=== PATIENT | male | born 1960 | race Caucasian/White ===

== ENCOUNTER 2017-12-12 16:06 | Emergency (ER) | payer OTHER, BC | END 2017-12-12 19:01 | disposition home or self-care (01) | LOC: M ED 16:06 | DX: S46.811A Strain of other muscles, fascia and tendons at shoulder and upper arm level, right arm, initial encounter (principal); X50.0XXA Overexertion from strenuous movement or load, initial encounter; Y92.89 Other specified places as the place of occurrence of the external cause; I10 Essential (primary) hypertension; Z79.899 Other long term (current) drug therapy | CPT/HCPCS: 73030 ==

== ENCOUNTER → 2018-10-08 | Outpatient (CLI) | payer BC ==
[~2018-10-08] MED LIST: ADVI200C5 PO; COUM2.5T17 PO; IBUP-1022 PO; LISI-542 PO; LISI10TA4 PO; OMEP20CA3 PO; PERC5TAB12 PO; SIMV20TA2 PO; SIMV40TA2 PO
--- NOTE | 2018-10-08 13:49 | REP ---
MAXILLOFACIAL CT WITHOUT CONTRAST: HISTORY: Sinus congestion. Moderate mucosal thickening is present in the right maxillary sinus. Minimal mucosal thickening is present in the right ethmoid and left maxillary sinuses. The remaining sinuses are clear. Mucosal thickening involves the right osteomeatal unit. The left osteomeatal unit is patent. The middle and inferior nasal turbinates are partially paradoxical. There is mild deviation of the nasal septum to the left. A spur is present arising from the left side of the nasal septum. The cribriform plate, medial borges of the orbits and optic canals are intact. The carotid canals form a segment of the posterolateral borges of the sphenoid sinus. IMPRESSION: Sinus mucosal thickening as described above. Electronically Signed by Paul Isaac MD 10/08/2018 02:18 P
== END ==
LOC: M RAD 12:49
PROVIDERS: ATTEND Nurse Practitioner Adult Health
DX: J34.2 Deviated nasal septum (principal); J32.0 Chronic maxillary sinusitis

== ENCOUNTER 2019-03-22 07:31 | Emergency (ER) | payer BC ==
[~2019-03-22] VITALS: Ht 182.9 cm; Wt 102.1 kg
[~2019-03-22 07:31] MED LIST changes: -OMEP20CA3 PO; +OMEP20CA4 PO
[2019-03-22] MEDS ORDERED: TETRACAINE 0.5% OPHTH SOLN 4ML OD ONE (07:45)
[2019-03-22] MEDS ORDERED: FLUORESCEIN OPHTH 1 MG STRIP OD ONE (07:45)
[2019-03-22] MEDS ORDERED: ERYT1OIN26 OD (08:08)
[2019-03-22] MEDS ORDERED: ERYTHROMYCIN OPHTH OINT OD ONE (08:15)
[2019-03-22] MEDS ORDERED: ADACEL/BOOSTRIX VACCINE (DIPHTH/PERTUSS/ACELL/TETANUS)0.5ML SYR (90715) IM ONE (08:45)
[2019-03-22 08:48] VITALS: BP 140/93
== END 2019-03-22 09:10 | disposition home or self-care (01) ==
LOC: M ED 07:31
DX: S05.01XA Injury of conjunctiva and corneal abrasion without foreign body, right eye, initial encounter (principal); T15.01XA Foreign body in cornea, right eye, initial encounter; X58.XXXA Exposure to other specified factors, initial encounter; Y92.099 Unspecified place in other non-institutional residence as the place of occurrence of the external cause; Y93.H3 Activity, building and construction; Y99.9 Unspecified external cause status; E78.00 Pure hypercholesterolemia, unspecified; I10 Essential (primary) hypertension; Z96.649 Presence of unspecified artificial hip joint

== ENCOUNTER → 2019-04-01 | Outpatient (REF) | payer BC ==
[~2019-04-01] MED LIST changes: +ERYT1OIN26 OD
[2019-04-01 10:45] LABS: HEMOGLOBIN 16.4 g/dl (13.5-17.5); MEAN CORPUSCULAR HEMOGLOBIN 30.1 pg (27.0-33.0); MEAN CORPUSCULAR HGB CONC 32.8 g/dl (32.0-36.5); MEAN CORPUSCULAR VOLUME 91.7 fl (80.0-96.0); PLATELET COUNT, AUTOMATED 310 10^3/uL (150-450); RED BLOOD COUNT 5.45 10^6/uL (4.30-6.10); WHITE BLOOD COUNT 5.3 10^3/uL (4.0-10.0)
[2019-04-01 11:01] LABS: ALBUMIN 3.7 GM/DL (3.2-5.2); ALT/SGPT 31 U/L (12-78); BILIRUBIN,TOTAL 0.4 MG/DL (0.2-1.0); BLOOD UREA NITROGEN 20 MG/DL (7-18); CALCIUM LEVEL 9.4 MG/DL (8.5-10.1); CARBON DIOXIDE LEVEL 32 MEQ/L (21-32); CHLORIDE LEVEL 106 MEQ/L (98-107); CHOLESTEROL LEVEL 277 MG/DL (<200); CREATININE FOR GFR 0.78 MG/DL (0.70-1.30); GLOMERULAR FILTRATION RATE > 60.0 (>56); GLUCOSE, FASTING 86 MG/DL (70-100); HDL CHOLESTEROL 48 MG/DL (>40); LDL CHOLESTEROL 203 MG/DL (<100); NON-HDL-C 229 MG/DL; POTASSIUM SERUM 4.8 MEQ/L (3.5-5.1); SODIUM LEVEL 141 MEQ/L (136-145); TOTAL 25(OH) VITAMIN D 22.1 NG/ML (30.0-100.0); TOTAL PROTEIN 6.9 GM/DL (6.4-8.2); TRIGLYCERIDES LEVEL 131 MG/DL (<150); VITAMIN B12 LEVEL 491 PG/ML (247-911)
[2019-04-01 11:09] LABS: HEMOGLOBIN A1c 5.6 %
[2019-04-02 14:16] LABS: IgG P18 AB Present (.); IgG P23 AB Absent (.); IgG P28 AB Absent (.); IgG P30 AB Absent (.); IgG P39 AB Absent (.); IgG P41 AB Absent (.); IgG P45 AB Absent (.); IgG P66 AB Absent (.); IgG P93 AB Absent (.); IgM P23 AB Absent (.); IgM P39 AB Absent (.); IgM P41 AB Absent (.); LYME IgG WB INTERPRETATION Negative (.); LYME IgM WB INTERPRETATION Negative (.)
== END ==
LOC: M SFHCPLAZ 07:22
PROVIDERS: ATTEND Nurse Practitioner Adult Health
DX: Z00.00 Encounter for general adult medical examination without abnormal findings (principal); Z12.5 Encounter for screening for malignant neoplasm of prostate; R73.01 Impaired fasting glucose; R53.83 Other fatigue
CPT/HCPCS: 36415; 80053; 80061; 82306; 82607; 83036; 84443; 85027; 86617; G0103

== ENCOUNTER → 2019-06-08 | Outpatient (REF) | payer BC ==
[~2019-06-08] MED LIST changes: +OMEP1CAP73 PO; -OMEP20CA4 PO; -SIMV20TA2 PO; +SIMV20TA22 PO; -SIMV40TA2 PO; +SIMV40TA20 PO
== END ==
LOC: M LAB REF 14:30
PROVIDERS: ATTEND Dermatology
DX: L57.0 Actinic keratosis (principal)

== ENCOUNTER → 2020-10-27 | Outpatient (CLI) | payer BC ==
[~2020-10-27] MED LIST changes: -ERYT1OIN26 OD; +ERYT5OIN25 OD; -LISI-542 PO; +LISI-898 PO; +LISI10TA22 PO; -LISI10TA4 PO
--- NOTE | 2020-10-28 05:58 | REP ---
INDICATION: PAIN. COMPARISON: None. TECHNIQUE: AP view of the pelvis with neutral and frog-lateral views of the right and left hip. FINDINGS: Visualized portions of the pelvis demonstrates no acute fracture or dislocation. Right hip demonstrates advanced osteoarthritic degenerative changes including subchondral/periarticular sclerosis, joint space obliteration, osteophytosis. No acute fracture or dislocation. Left hip demonstrates prior replacement in satisfactory appearance. Small amounts of heterotopic calcification/bone formation in the adjacent soft tissue noted. IMPRESSION: Advanced degenerative changes to the right hip. Left hip replacement appears intact and stable. <Electronically signed by Sebastian Johnson > 10/28/20 1704
== END ==
LOC: M SOG 10:06
PROVIDERS: ATTEND Orthopaedic Surgery Adult Reconstructive Orthopaedic Surgery
DX: M16.11 Unilateral primary osteoarthritis, right hip (principal); Z96.642 Presence of left artificial hip joint

== ENCOUNTER 2020-11-29 07:18 | Outpatient (RCR) | payer BC ==
[~2020-11-29 07:18] MED LIST changes: -LISI-898 PO; +LISI5TAB11 PO
[2020-12-01] MEDS ORDERED: IBUP200T46 PO (08:14)
[2021-01-04] MEDS ORDERED: ATOR1TAB21 (07:06)
== END 2020-12-10 ==
LOC: M PT 07:18
PROVIDERS: ATTEND Orthopaedic Surgery Adult Reconstructive Orthopaedic Surgery
DX: M16.31 Unilateral osteoarthritis resulting from hip dysplasia, right hip (principal)

== ENCOUNTER → 2020-12-12 | Outpatient (CLI) | payer BC ==
[~2020-12-12] MED LIST changes: +ATOR1TAB21; +IBUP200T46 PO; +NAPR-849 PO; +OXYC-517 PO
== END ==
LOC: M RAD 08:58
PROVIDERS: ATTEND Orthopaedic Surgery Adult Reconstructive Orthopaedic Surgery
DX: M16.31 Unilateral osteoarthritis resulting from hip dysplasia, right hip (principal)

== ENCOUNTER → 2020-12-13 | Outpatient (REF) | payer BC | LOC: M SFHCPLAZ 08:44 | PROVIDERS: ATTEND Internal Medicine | DX: K21.9 Gastro-esophageal reflux disease without esophagitis (principal); I10 Essential (primary) hypertension; E78.00 Pure hypercholesterolemia, unspecified; Z11.59 Encounter for screening for other viral diseases; Z12.5 Encounter for screening for malignant neoplasm of prostate ==

== ENCOUNTER → 2020-12-13 | Outpatient (CLI) | payer BC ==
[2020-12-13 12:09] LABS: BASO # 0.1 10^3/uL (0.0-0.2); BASO % 1.3 % (0.0-1.0); EOS # 0.3 10^3/uL (0.0-0.5); EOS % 5.6 % (0.0-3.0); HEMATOCRIT 52.2 % (42.0-52.0); LYMPH # 1.7 10^3/uL (1.5-5.0); LYMPH % 31.7 % (24.0-44.0); MEAN CORPUSCULAR HEMOGLOBIN 29.8 pg (27.0-33.0); MEAN CORPUSCULAR HGB CONC 32.6 g/dl (32.0-36.5); MEAN CORPUSCULAR VOLUME 91.4 fl (80.0-96.0); MONO # 0.6 10^3/uL (0.0-0.8); MONO % 10.6 % (2.0-8.0); NEUTROPHILS # 2.7 10^3/uL (1.5-8.5); NEUTROPHILS % 50.4 % (36.0-66.0); PLATELET COUNT, AUTOMATED 341 10^3/uL (150-450); RED BLOOD COUNT 5.71 10^6/uL (4.30-6.10); WHITE BLOOD COUNT 5.4 10^3/uL (4.0-10.0)
[2020-12-13 12:43] LABS: ALT/SGPT 30 U/L (12-78); BILIRUBIN,TOTAL 0.4 MG/DL (0.2-1.0); BLOOD UREA NITROGEN 21 MG/DL (7-18); CALCIUM LEVEL 9.9 MG/DL (8.8-10.2); CARBON DIOXIDE LEVEL 31 MEQ/L (21-32); CHLORIDE LEVEL 106 MEQ/L (98-107); CHOLESTEROL LEVEL 296 MG/DL (<200); CHOLESTEROL RISK RATIO 5.692 (<5); CREATININE FOR GFR 0.85 MG/DL (0.70-1.30); GLOMERULAR FILTRATION RATE > 60.0 (>49); GLUCOSE, FASTING 86 MG/DL (70-100); HDL CHOLESTEROL 52 MG/DL (>40); LDL CHOLESTEROL 213 MG/DL (<100); NON-HDL-C 244 MG/DL; POTASSIUM SERUM 4.9 MEQ/L (3.5-5.1); SODIUM LEVEL 142 MEQ/L (136-145); TOTAL PROTEIN 7.3 GM/DL (6.4-8.2); TRIGLYCERIDES LEVEL 155 MG/DL (<150)
[2020-12-13 13:30] LABS: HEPATITIS C VIRUS ABY INDEX 0.1 INDEX (<0.8)
== END ==
LOC: M PLALAB 08:51
PROVIDERS: ATTEND Internal Medicine
DX: Z12.5 Encounter for screening for malignant neoplasm of prostate (principal)
CPT/HCPCS: 36415; 80053; 80061; 85025; 86803; G0103

== ENCOUNTER → 2020-12-22 | Outpatient (CLI) | payer BC ==
[~2020-12-22] MED LIST changes: -ATOR1TAB21; +IBUP200T45 PO; -IBUP200T46 PO; +LISI-898 PO; -LISI5TAB11 PO; -NAPR-849 PO; -OXYC-517 PO
== END ==
LOC: M LABSMTC 09:42
PROVIDERS: ATTEND Anesthesiology
DX: Z20.828 Contact with and (suspected) exposure to other viral communicable diseases (principal); Z11.59 Encounter for screening for other viral diseases

== ENCOUNTER → 2021-01-12 | Outpatient (CLI) | payer BC ==
[~2021-01-12] MED LIST changes: +ATOR1TAB21; +NAPR-849 PO; +OXYC-517 PO
== END ==
LOC: M LABSMTC 09:40
PROVIDERS: ATTEND Anesthesiology
DX: Z01.812 Encounter for preprocedural laboratory examination (principal)

== ENCOUNTER 2021-01-17 08:54 | Inpatient (IN) | payer BC ==
[~2021-01-17] VITALS: Ht 182.9 cm; Wt 99.1 kg
[~2021-01-17 08:54] MED LIST changes: +ACETAMINOPHEN 500 MG TAB PO ONE; +LIDOCAINE 2% 100MG/5ML SDV (FOR ANES.) As Ordered ONE; +LR 1,000 ML IV ONE; +MIDAZOLAM INJ 2MG/2ML VIAL (J2250 PER 1MG) As Ordered ONE; -NAPR-849 PO; +NAPROXEN 250 MG TAB PO ONE; +NS 1,000 ML IV ONE; -OXYC-517 PO; +PREGABALIN 25 MG CAP (LYRICA) PO ONE; +ROPIVA 125MG/EPINEPH 0.25MG/CLONID 40MCG/KETOR 15MG IN NS 50ML SYRINGE PA ONE; +TRANEXAMIC ACID INJection 1,000 MG in NS 50 ML IV ONE; +dexameTHASONE 4 MG/ML 1ML VIAL (J1100 PER 1MG) IV ONE; +fentaNYL 100 MCG/2 ML INJECTION (J3010) As Ordered ONE; +propofoL 200 MG/20 ML VIAL As Ordered ONE
[2021-01-17] MEDS ORDERED: TRANEXAMIC ACID 100 MG/ML 10ML VIAL As Ordered ONE ×2 (10:55→10:56)
[2021-01-17] MEDS ORDERED: ceFAZolin 2 GM/D5W 50 ML IV BAG (J0690 PER 500MG) As Ordered ONE (11:39)
[2021-01-17] MEDS ORDERED: GLYCOPYRROLATE INJ 0.2 MG/ML 2 ML VIAL As Ordered ONE (11:58)
[2021-01-17] MEDS ORDERED: propofoL 200 MG/20 ML VIAL As Ordered ONE ×3 (12:38→13:51)
[2021-01-17] MEDS ORDERED: ROCURONIUM BROMIDE 50 MG/5 ML VIAL As Ordered ONE (13:51)
[2021-01-17] MEDS ORDERED: SUGAMMADEX SODIUM 500 MG/5 ML VIAL (BRIDION) As Ordered ONE (13:52)
[2021-01-17] MEDS ORDERED: ONDANSETRON 4MG/2ML VIAL As Ordered ONE (14:11)
[2021-01-17] MEDS ORDERED: ACETAMINOPHEN 1000MG 100ML IV BTL (OFIRMEV) (J0131 PER 10MG) As Ordered ONE (14:20)
[2021-01-17] MEDS ORDERED: MORPHINE 2 MG/ML 1ML VIAL (J2270) IV PRN (15:05)
[2021-01-17] MEDS ORDERED: fentaNYL 100 MCG/2 ML INJECTION (J3010) IV PRN (15:05)
[2021-01-17] MEDS ORDERED: ACETAMINOPHEN TAB 650MG DOSE (2X325MG) PO PRN (15:05)
[2021-01-17] MEDS ORDERED: oxyCODONE 5MG TAB PO PRN (15:05)
[2021-01-17] MEDS ORDERED: PERCOCET 5MG/325MG TAB PO PRN ×2 (15:05)
[2021-01-17] MEDS ORDERED: METOCLOPRAMIDE INJ 10MG/2ML VIAL (J2765 PER 1) IV PRN (15:05)
[2021-01-17] MEDS ORDERED: ONDANSETRON 4MG/2ML VIAL IV PRN ×3 (15:05→15:40)
[2021-01-17] MEDS ORDERED: LR 1,000 ML IV SCH ×2 (15:05→16:00)
--- NOTE | 2021-01-17 15:09 | REP ---
INDICATION: "lowset AP pelvis" s/p arthroplasty R hip. COMPARISON: 10/27/2020 TECHNIQUE: A single AP view of the pelvis was performed. FINDINGS: A since the last examination a total right hip prosthesis was placed. The femoral and acetabular components appear well seated and well approximated. The alignment is near anatomical. There is no evidence of an acute fracture, dislocation, or subluxation. IMPRESSION: Status post right hip prosthesis as described above. <Electronically signed by Sam Anderson > 01/17/21 0326
--- NOTE | 2021-01-17 15:32 | HPEPDOC ---
[facility] Medical History & Physical Date of Admission Jan 17, 2021 Date of Service: Jan 17, 2021 Primary Care Physician: Pancho Souza Attending Physician: CATRINA MCINTYRE DO History and Physical CHIEF COMPLAINT: Right hip osteoarthritis HISTORY OF PRESENT ILLNESS: Patient is a 60-year-old male who presents to the hospital today for a total right hip arthroplasty performed by Dr. De La Rosa today. Patient will be admitted overnight. Patient states he is in his usual state of health before coming to surgery. Patient states he feels good after the surgery and has a very minimal amount of pain. Patient says the spinal had it wear off and he is having trouble feeling his legs but is otherwise feeling well. Patient denied any complaints at this time. PAST MEDICAL HISTORY: 1. Hypertension. 2. History of irregular heartbeat. 3. Arthritis. 4. Back pain 5. Diverticulosis PAST SURGICAL HISTORY: 1. [place] tooth extraction. 2. Prostate biopsy, -2009. 3. Colonoscopy with hyperplastic polyp in 2014, 5-year follow-up recommended 4. Total left hip arthroplasty 01/27/2016 SOCIAL HISTORY: Patient is currently and lives with his . Patient denies smoking will occasionally drink alcohol and denies illicit drug use. Patient works as a salesman for [employer] FAMILY HISTORY: Patient did not know his father and his mother was adopted. Mother from a heart attack ALLERGIES: Please see below. REVIEW OF SYSTEMS: General: Patient denies fevers HEENT: Patient denies headaches Cardiovascular: Patient denies chest pain Respiratory: Patient denies shortness of breath, cough GI: Patient denies abdominal pain, nausea, vomiting, diarrhea : Patient denies increased frequency or pain with urination Extremities: Patient reports some pain in his right hip with the surgery was performed Neurological: Patient denies numbness or tingling in legs Skin: Patient denies any new rashes or lesions. Hematologic: Patient denies any easy bruising. Lymphatic: Patient denies any lumps lumps or bumps in neck, axilla, or groin HOME MEDICATIONS: Please see below. PHYSICAL EXAMINATION: VITAL SIGNS: Temperature 98.5, pulse 85, respiratory rate 18, blood pressure 118/71, pulse oximetry 97% on room air. General: Alert and oriented male patient who was laying in bed in the recovery room when I walked in the room. Patient not appear to be in acute distress. HEENT: Normocephalic, atraumatic, moist mucous membranes. Neck: No lymphadenopathy or thyromegaly Cardiac: Regular rate and rhythm, no murmurs, normal S1, normal S2 Pulm: Clear to auscultation bilaterally. No wheezes, rhonchi, rales Abd: Nondistended, nontender to palpation, normal bowel sounds Ext: No edema bilateral lower extremities Neuro: Patient reported that he cannot feel me lightly touching his legs due to the spinal anesthesia. Patient could feel his upper extremities. Patient was able to move his upper extremities. Skin: Skin of the head, neck, upper and lower extremities was examined did not show any evidence of rash or wounds. Right hip incision was covered with bandage. LABORATORY DATA: See below. IMAGING: X-ray of the pelvis performed on 01/17/2021 was reported to show status post right hip prosthesis. MICROBIOLOGY: Please see below. ASSESSMENT: 60-year-old male who presents to the hospital for right hip arthroplasty performed by Dr. De La Rosa. . PLAN: 1. Right hip osteoarthritis. Patient had right hip arthroplasty performed by Dr. De La Rosa today, 01/17/2021. Patient did well during the surgery and will work with physical therapy tomorrow. Patient will have pain control with Percocet. Once patient is doing well in physical therapy, the patient be discharged home for next 24 to 48 hours. 2. Hyperlipidemia. Continue patient's home medications. 3. History of hypertension. Patient does not appear to be on any antihypertensive medications. We will monitor the patient's blood pressure and treat if necessary. 4. DVT prophylaxis: Teds and sequentials 5. CODE STATUS: Full code Disposition: Patient be found to the medical surgical floor and work physical therapy and will be discharged once he passes physical therapy. Vital Signs Vital Signs Date Time Temp Pulse Resp B/P (MAP) Pulse Ox O2 Delivery O2 Flow Rate FiO2 01/17/21 15:15 85 18 118/71 (87) 97 Room Air 01/17/21 14:47 98.5 Home Medications Scheduled PRN Ibuprofen (Ibu-200) 200 Mg Tablet, 600 MG PO Q4-6HP PRN for fever Miscellaneous Medications Atorvastatin Calcium (Atorvastatin Calcium) 20 Mg Tablet Allergies Coded Allergies: No Known Allergies (Unverified , 01/04/21) A-FIB/CHADSVASC A-FIB History Current/History of A-Fib/PAF?: No CATRINA MCINTYRE DO Jan 17, 2021 15:32
[2021-01-17] MEDS ORDERED: SENNA 8.6 MG TAB (SENOKOT) PO PRN (15:45)
[2021-01-17 16:15] VITALS: BP 126/65
[2021-01-17 16:45] VITALS: BP 126/72
--- NOTE | 2021-01-17 17:01 | ROOPDOC ---
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 MANAGER DIALYSIS: Viday Reilly PA-C ANESTHESIA: Spinal with conversion to general anesthetic towards the end of the case ESTIMATED BLOOD LOSS: Approximately 300 mL. COMPLICATIONS: No known REMARKS: Patient was seen in the preoperative area and the right lower extremity was checked.. The consent was reviewed. Prior to surgical intervention the [facility] plan was reviewed and adjusted. FINDINGS: Right hip osteoarthritis with coxa magna and dysplasia SPECIMENS REMOVED: None PROCEDURE NOTE: Components: [place] Trident 2 titanium acetabular shell size 5 mm Accolade 2 size #6 femoral stem MDM liner 28 mm inner diameter Ceramic femoral head 28 mm PLUS 4 DESCRIPTION OF PROCEDURE: The patient was brought to the operating room and a surgical pause was carried out. The patient was then positioned for a spinal anesthetic which was carried out. The patient was then positioned in the left lateral decubitus position for the right total hip arthroplasty. Appropriate padding was carried out including an axillary roll. Patient was secured with the Stulberg positioning system. The patient and underwent a chlorhexidine wash of the right lower extremity followed by 2 times alcohol wash and then 1 hydrogen peroxide wash. 2 standard sterile chlorhexidine preps were carried out utilizing the ones. The patient was then prepped and draped in the standard fashion. A surgical pause was carried out and a surgical safety checklist was completed. The modified Leroy approach was utilized for the lateral skin incision. Skin and subcutaneous tissues were incised down to the fascia. The fascia was split. This was retracted to expose the abductors. The abductors and capsule were elevated using electrocautery in a single layer. Hohmann retractors were placed to help with visualization. The iliac crest array was placed using 3 pins for the Nicho system in the standard fashion, utilizing stab hole incisions. The checkpoint for the greater trochanter was then placed. The right lower extremity was then registered. The hip was dislocated. The labrum was removed with electrocautery and other soft tissues to help with exposure. Electrocautery was used for hemostasis throughout the procedure. The acetabular checkpoint was then placed. The pelvis and acetabular cup was then registered using the [employer] robot. The robot was then brought in for appropriate reaming as per the preoperative plan. A 52 mm cup was reamed. Of note, the patient had a fairly sclerotic cup and there was difficulty with reaming. Some of the reamings were placed in the fovea of the acetabulum for autologous bone grafting. Additional soft tissue was removed from the acetabulum using electrocautery. The Nicho robot was then used to impact the cup at the preplanned version and abduction angle. This was seated appropriately. Significant osteophyte at the inferior border of the cup had to be removed utilizing a rongeur and a curette in order to allow the the du al mobility liner to be placed and then impacted without difficulty. It was checked to ensure it was secured with a freer. The patient then had the leg placed in the bag with a femoral elevator and a Roxanna elevating the proximal femur. Electrocautery was used to free up soft tissue at the posterior lateral aspect of the femur. A rongeur and then a box osteotome were used to open up the femoral canal followed by the canal finder. Broaching then occurred up to a size 7. Both size 6 and 7 were trialed however the 6 appeared to be the most appropriate. At this time, it was noted that the patient spinal anesthetic was appearing to wear off and he was regaining muscular tone. A general anesthetic intubation was then carried out with the patient in the left lateral decubitus position. Th the size 6 was trialed with the standard head and neck and subsequently with the +4 and then found to have appropriate tensioning, leg length and offset as well as a good stable range of motion. This was trialed and the leg was taken through stable range of motion without any risk of dislocation being noted. The final components were assembled. The stem was inserted. The +4 was retrialed. The trunnion was cleansed with normal sterile saline and dried and then the dual mobility head was impacted. This was then reduced and taken through a full stable range of motion. Wound was irrigated and tranexamic acid was allowed to sit for 3 minutes. The wound also had Betadine soaking in it. The layered closure then occurred with #1 Vicryl closure deep followed by #1 Vicryl and strata fix for the abductors and then #1 Vicryl and strata fix for the fascia. The subcutaneous layer was closed with interrupted #1 Vicryl followed by running 2.0 Vicryl followed by three-point 0 Monocryl. Normal sterile saline and Betadine washes were carried out in between layers. The stab wounds for the iliac crest array were irrigated with normal sterile saline and painted with Betadine before closure with three-point 0 Monocryl. The wound was sealed with Steri-Strips followed by Telfa and Tegaderm for the iliac crest dressing and a Mepilex dressing for the Leroy incision. The patient was taken to the recovery room stable with no known complications The patient will be admitted to the hospitalist service. Anticipate discharge postop day 1 if there are no issues. Physical therapy to mobilize. Discharge Instructions Total Hip Arthroplasty 1. Pain: You may take oxycodone as prescribed for pain. Supplement with Naproxen and Tylenol as needed. Ice pack to operative hip as tolerated. 2. Wound care: Remove lateral head dressing on postop day 7. The iliac crest pin site dressing can be changed every 3 days with Telfa and Tegaderm. call [phone] with any questions or concerns. Hygiene: The patient may shower. No tub baths. Check dressing seal prior to bathing. 3. Activity: WBAT right lower extremity. Front wheeled walker versus crutches for ambulation. Fall precautions. Anterolateral hip precautions (NO figure of 4/crossing legs, combined external rotation/extension, combined internal rotation/abduction). 4. Driving: No driving until cleared by your surgeon. Do not drive if taking narcotic pain medications as these may make you drowsy. 5. DVT Prophylaxis: Continue taking aspirin 81 mg p.o. twice daily as prescribed for the prevention of blood clots. Ankle pumps every 1 hour while awake. JURGEN hose at all times for 1 month after surgery. May remove for hygiene and wound care. 6. Placement: Plan is to discharge patient to home with home health including nursing and physical therapy. 7. Surgeon Follow-up: The patient is scheduled to be seen in Dr. Monroy's office 2 weeks post op with xrays. 8. Primary care Follow-up: Please see your primary care provider in the next 2 to 5 weeks for general medical re-evaluation and medication review. 9. Labs: CBC without differential and BMP to be drawn on postop day 3 with results to PCP and please fax to [phone]. 10. Please contact [facility] if you have any questions or concerns at [phone]. AMANDA MONROY MD Jan 17, 2021 17:01
[2021-01-17 17:15] VITALS: BP 126/72
[2021-01-17] MEDS: ACETAMINOPHEN TAB 650MG DOSE (2X325MG) PO SCH ×2 (17:42→23:32)
[2021-01-17] MEDS ORDERED: ACETAMINOPHEN TAB 650MG DOSE (2X325MG) PO SCH (18:00)
[2021-01-17 18:15] VITALS: BP 126/74
[2021-01-17] MEDS: ceFAZolin SOD 2 GM in IV 1 EA IV SCH (20:11)
[2021-01-17] MEDS: ASPIRIN 81MG ENTERIC TABLET PO SCH (20:11)
[2021-01-17] MEDS: traMADol 50 MG TAB PO PRN (20:12)
[2021-01-17] MEDS: DOCUSATE SODIUM 100MG CAPSULE PO SCH (20:13)
[2021-01-17] MEDS: NAPROXEN 250 MG TAB PO SCH (20:13)
[2021-01-17] MEDS ORDERED: ASPIRIN 81 MG CHEW TABLET PO SCH (21:00)
[2021-01-17] MEDS: oxyCODONE 5MG TAB PO PRN (22:54)
[2021-01-18] VITALS: BP 118/81
[2021-01-18] MEDS: traMADol 50 MG TAB PO PRN ×2 (00:20→08:53)
[2021-01-18] MEDS: oxyCODONE 5MG TAB PO PRN ×3 (02:57→11:59)
[2021-01-18] MEDS: ceFAZolin SOD 2 GM in IV 1 EA IV SCH (03:00)
[2021-01-18] MEDS: ACETAMINOPHEN TAB 650MG DOSE (2X325MG) PO SCH ×2 (05:43→11:59)
[2021-01-18 06:00] VITALS: BP 122/79
[2021-01-18 06:11] LABS: HEMATOCRIT 37.3 % (42.0-52.0); HEMOGLOBIN 12.8 g/dl (13.5-17.5); MEAN CORPUSCULAR HEMOGLOBIN 30.5 pg (27.0-33.0); MEAN CORPUSCULAR HGB CONC 34.3 g/dl (32.0-36.5); PLATELET COUNT, AUTOMATED 271 10^3/uL (150-450); RED BLOOD COUNT 4.19 10^6/uL (4.30-6.10); WHITE BLOOD COUNT 14.9 10^3/uL (4.0-10.0)
[2021-01-18 06:38] LABS: BLOOD UREA NITROGEN 14 MG/DL (7-18); CARBON DIOXIDE LEVEL 25 MEQ/L (21-32); CHLORIDE LEVEL 108 MEQ/L (98-107); CREATININE FOR GFR 0.68 MG/DL (0.70-1.30); GLOMERULAR FILTRATION RATE > 60.0 (>49); GLUCOSE, FASTING 113 MG/DL (70-100); MAGNESIUM LEVEL 2.2 MG/DL (1.8-2.4); POTASSIUM SERUM 4.4 MEQ/L (3.5-5.1); SODIUM LEVEL 138 MEQ/L (136-145)
--- NOTE | 2021-01-18 07:49 | IPNPDOC ---
Text Note Date of Service The patient was seen on 01/18/21. NOTE Postop day 1 right total hip arthroplasty Patient reports that he had been doing quite well last night. He did have to start taking the oxycodone later on due to some sharp pains as well as cramping type pains in the right hip. He was able to walk with a walker to the door w ithout any issues or concerns. Dressing to the iliac crest and lateral hip were intact with no obvious staining. Patient was able to move his toes of his right foot and ankle. Palpable posterior tibial pulse and sensation grossly intact to light touch. X-ray imaging that was taken in the recovery room was independently ordered and reviewed by myself. This demonstrated the right total hip arthroplasty prosthesis in good position without any obvious signs of complication. Plan for patient to be evaluated by physical therapy and the hospitalist service with likely discharge home today. Discharge Instructions Total Hip Arthroplasty 1. Pain: You may take oxycodone as prescribed for pain. Supplement with Naproxen and Tylenol as needed. Ice pack to operative hip as tolerated. 2. Wound care: Remove dressing on postop day 7. Call [phone] with any questions or concerns. Hygiene: The patient may shower. No tub baths. Check dressing seal prior to bathing. 3. Activity: WBAT right lower extremity. Front wheeled walker versus crutches for ambulation. Fall precautions. Anterolateral hip precautions (NO figure of 4/crossing legs, combined external rotation/extension, combined internal rotation/abduction). 4. Driving: No driving until cleared by your surgeon. Do not drive if taking na rcotic pain medications as these may make you drowsy. 5. DVT Prophylaxis: Continue taking aspirin 81 mg p.o. twice daily as prescribed for the prevention of blood clots. Ankle pumps every 1 hour while awake. JURGEN hose at all times for 1 month after surgery. May remove for hygiene and wound care. 6. Placement: Plan is to discharge patient to home with home health including nursing and physical therapy. 7. Surgeon Follow-up: The patient is scheduled to be seen in Dr. Monroy's office 2 weeks post op with xrays. 8. Primary care Follow-up: Please see your primary care provider in the next 2 to 5 weeks for general medical re-evaluation and medication review. 9. Labs: CBC without differential and BMP to be drawn on postop day 3 with results to PCP and please fax to [phone]. 10. Please contact [facility] if you have any questions or concerns at [phone]. VS,Fishbone, I+O VS, Fishbone, I+O Laboratory Tests 01/18/21 05:57 Vital Signs Date Time Temp Pulse Resp B/P (MAP) Pulse Ox O2 Delivery O2 Flow Rate FiO2 01/18/21 06:58 14 01/18/21 06:00 97.8 74 122/79 (93) 94 Room Air I&O- Last 24 Hours up to 6 AM 01/18/21 06:00 Intake Total 3150 ml Output Total 2000 ml Balance 1150 ml AMANDA MONROY MD Jan 18, 2021 07:49
[2021-01-18] MEDS: ASPIRIN 81MG ENTERIC TABLET PO SCH (08:51)
[2021-01-18] MEDS: DOCUSATE SODIUM 100MG CAPSULE PO SCH (08:52)
[2021-01-18] MEDS: NAPROXEN 250 MG TAB PO SCH (08:52)
[2021-01-18] MEDS ORDERED: FERROUS SULFATE 325MG TAB PO SCH (09:00)
[2021-01-18] MEDS ORDERED: ATORVASTATIN 20 MG TAB PO SCH (09:00)
[2021-01-18] MEDS ORDERED: ASCORBIC ACID 500 MG TAB PO SCH (09:00)
[2021-01-18] MEDS ORDERED: OXYC-517 PO (12:12)
[2021-01-18] MEDS ORDERED: NAPR-849 PO (12:12)
--- NOTE | 2021-01-18 16:34 | DS.PDOC ---
Discharge Summary General Date of Admission 01/17/2021 Date of Discharge 01/18/2021 Primary Care Physician: Pancho Souza Attending Physician: CATRINA MCINTYRE DO Specialist/Consultants Involve: AMANDA MONROY MD Discharge Summary PROCEDURES PERFORMED DURING STAY: Right hip total arthroplasty. ADMITTING DIAGNOSES: 1. Right hip osteoarthritis. 2. Hyperlipidemia 3. History of hypertension DISCHARGE DIAGNOSES: 1. Right hip osteoarthritis. 2. Hyperlipidemia 3. History of hypertension COMPLICATIONS/CHIEF COMPLAINT: Right Hip Osteoarthritis. HISTORY OF PRESENT ILLNESS: Patient is a 60-year-old male who presented to the hospital for a right total hip arthroplasty performed by Dr. Monroy on 7020. Patient was doing well after the surgery and was in his usual state of health prior to coming to the hospital for surgery. Patient had only minimal amount of pain and the patient was admitted overnight for monitoring. HOSPITAL COURSE: Patient did well walking to and from the bathroom of the nursing staff. Patient work with physical therapy on 01/18/2021 and did well. Patient was able to ambulate well enough to go home. Patient had good pain c ontrol at this time and Dr. Monroy wrote discharge instructions for the patient. Patient was discharged home on 01/18/2021. DISCHARGE MEDICATIONS: Please see below. ALLERGIES: Please see below. PHYSICAL EXAMINATION ON DISCHARGE: VITAL SIGNS: Please see below. General: Alert and oriented male patient who was sitting in bed when I walked in. Patient not appear to be in acute distress. HEENT: Normocephalic, atraumatic, moist mucous membranes. Neck: No lymphadenopathy or thyromegaly Cardiac: Regular rate and rhythm, no murmurs, normal S1, normal S2 Pulm: Clear to auscultation bilaterally. No wheezes, rhonchi, rales Abd: Nondistended, nontender to palpation, normal bowel sounds Ext: No edema bilateral lower extremities, there is a bandage over the right hip incision that was not soiled LABORATORY DATA: Please see below. IMAGING: X-ray of the pelvis performed on 01/17/2021 is reported to show status post right hip prosthesis PROGNOSIS: Good ACTIVITY: As tolerated. DIET: Regular DISCHARGE PLAN: Discharge home with home health service DISPOSITION:-Home health service DISCHARGE INSTRUCTIONS: 1. Pain: You may take oxycodone as prescribed for pain. Supplement with Naproxen and Tylenol as needed. Ice pack to operative hip as tolerated. 2. Wound care: Remove dressing on postop day 7. Call [phone] with any questions or concerns. Hygiene: The patient may shower. No tub baths. Check dressing seal prior to bathing. 3. Activity: WBAT right lower extremity. Front wheeled walker versus crutches for ambulation. Fall precautions. Anterolateral hip precautions (NO figure of 4/crossing legs, combined external rotation/extension, combined internal rotation/abduction). 4. Driving: No driving until cleared by your surgeon. Do not drive if taking narcotic pain medications as these may make you drowsy. 5. DVT Prophylaxis: Continue taking aspirin 81 mg p.o. twice daily as prescribed for the prevention of blood clots. Ankle pumps every 1 hour while awake. JURGEN hose at all times for 1 month after surgery. May remove for hygiene and wound care. 6. Placement: Plan is to discharge patient to home with home health including nursing and physical therapy. 7. Surgeon Follow-up: The patient is scheduled to be seen in Dr. Monroy's office 2 weeks post op with xrays. 8. Primary care Follow-up: Please see your primary care provider in the next 2 to 5 weeks for general medical re-evaluation and medication review. 9. Labs: CBC without differential and BMP to be drawn on postop day 3 with results to PCP and please fax to [phone]. 10. Please contact [facility] if you have any questions or concerns at [phone]. ITEMS TO FOLLOWUP ON ON OUTPATIENT: 1. CBC and BMP. DISCHARGE CONDITION: Stable. TIME SPENT ON DISCHARGE: 20 minutes. Vital Signs/I&Os Vital Signs Date Time Temp Pulse Resp B/P (MAP) Pulse Ox O2 Delivery O2 Flow Rate FiO2 01/18/21 12:29 18 01/18/21 06:00 97.8 74 122/79 (93) 94 Room Air I&O- Last 24 Hours up to 6 AM 01/18/21 06:00 Intake Total 3150 ml Output Total 2000 ml Balance 1150 ml Laboratory Data Labs 24H Laboratory Tests 2 01/18/21 05:57: Nucleated Red Blood Cells % (auto) 0.0, Anion Gap 5L, Glomerular Filtration Rate > 60.0, Calcium Level 9.0, Magnesium Level 2.2 CBC/BMP Laboratory Tests 01/18/21 05:57 Discharge Medications Scheduled Naproxen (Naproxen) 250 Mg Tablet, 250 MG PO Q12H Scheduled PRN Oxycodone HCl (Oxycodone HCl) 5 Mg Tablet, 5 MG PO Q6HP PRN for PAIN LEVEL 5-10 Miscellaneous Medications Atorvastatin Calcium (Atorvastatin Calcium) 20 Mg Tablet, (Reported) Allergies Coded Allergies: No Known Allergies (Unverified , 01/04/21) CATRINA MCINTYRE DO Jan 18, 2021 16:33
== END 2021-01-19 14:30 | disposition home health service (06) | DRG 301 ==
LOC: M SDC 08:54 → M MS5PR 15:08 → M SDC 01-18 13:20
PROVIDERS: ADMIT Family Medicine; ATTEND Family Medicine
PROC: 8E0Y0CZ Robotic Assisted Procedure of Lower Extremity, Open Approach (ICD-10-PCS; 2021-01-17)
PROC: 0SR904Z Replacement of Right Hip Joint with Ceramic on Polyethylene Synthetic Substitute, Open Approach (ICD-10-PCS; principal; 2021-01-17 10:40)
DX: M16.11 Unilateral primary osteoarthritis, right hip (principal); Z96.643 Presence of artificial hip joint, bilateral; E78.5 Hyperlipidemia, unspecified; Z86.010 Personal history of colon polyps; Z79.899 Other long term (current) drug therapy

== ENCOUNTER → 2021-01-20 | Outpatient (CLI) | payer BC ==
[~2021-01-20] MED LIST changes: -ACETAMINOPHEN 500 MG TAB PO ONE; -LIDOCAINE 2% 100MG/5ML SDV (FOR ANES.) As Ordered ONE; -LR 1,000 ML IV ONE; -MIDAZOLAM INJ 2MG/2ML VIAL (J2250 PER 1MG) As Ordered ONE; +NAPR-849 PO; -NAPROXEN 250 MG TAB PO ONE; -NS 1,000 ML IV ONE; +OXYC-517 PO; -PREGABALIN 25 MG CAP (LYRICA) PO ONE; -ROPIVA 125MG/EPINEPH 0.25MG/CLONID 40MCG/KETOR 15MG IN NS 50ML SYRINGE PA ONE; -TRANEXAMIC ACID INJection 1,000 MG in NS 50 ML IV ONE; -dexameTHASONE 4 MG/ML 1ML VIAL (J1100 PER 1MG) IV ONE; -fentaNYL 100 MCG/2 ML INJECTION (J3010) As Ordered ONE; -propofoL 200 MG/20 ML VIAL As Ordered ONE
[2021-01-20 13:46] LABS: HEMATOCRIT 41.1 % (42.0-52.0); HEMOGLOBIN 13.5 g/dl (13.5-17.5); MEAN CORPUSCULAR HEMOGLOBIN 30.4 pg (27.0-33.0); MEAN CORPUSCULAR HGB CONC 32.8 g/dl (32.0-36.5); MEAN CORPUSCULAR VOLUME 92.6 fl (80.0-96.0); PLATELET COUNT, AUTOMATED 309 10^3/uL (150-450); RED BLOOD COUNT 4.44 10^6/uL (4.30-6.10); WHITE BLOOD COUNT 9.9 10^3/uL (4.0-10.0)
[2021-01-20 14:03] LABS: BLOOD UREA NITROGEN 15 MG/DL (7-18); CALCIUM LEVEL 8.9 MG/DL (8.8-10.2); CARBON DIOXIDE LEVEL 30 MEQ/L (21-32); CHLORIDE LEVEL 105 MEQ/L (98-107); CREATININE FOR GFR 0.85 MG/DL (0.70-1.30); GLOMERULAR FILTRATION RATE > 60.0 (>49); GLUCOSE, FASTING 120 MG/DL (70-100); SODIUM LEVEL 140 MEQ/L (136-145)
== END ==
LOC: M PLALAB 09:54
PROVIDERS: ATTEND Family Medicine
DX: Z47.89 Encounter for other orthopedic aftercare (principal)

== ENCOUNTER → 2021-01-30 | Outpatient (CLI) | payer BC ==
--- NOTE | 2021-01-30 10:32 | REP ---
INDICATION: RT PROSTHETIC HIP. COMPARISON: AP pelvis of 01/17/2021 TECHNIQUE: AP pelvis two views right hip FINDINGS: The AP pelvis is unchanged from 01/17/2021. Bilateral hip arthroplasties are again noted status quo. The two view examination of the right hip shows the femoral and acetabular components of the arthroplasty to be well seated and well approximated and unchanged from the prior exam. There is no acute fracture, dislocation, or subluxation. IMPRESSION: No acute abnormality. Findings as described above. <Electronically signed by Sam Anderson > 01/30/21 7181
== END ==
LOC: M SOG 09:36
PROVIDERS: ATTEND Orthopaedic Surgery Adult Reconstructive Orthopaedic Surgery
DX: Z96.641 Presence of right artificial hip joint (principal)

== ENCOUNTER → 2021-05-10 | Outpatient (CLI) | payer BC ==
[~2021-05-10] MED LIST changes: -IBUP200T45 PO; +IBUP200T46 PO
== END ==
LOC: M LABSMTC 10:26
PROVIDERS: ATTEND Pediatrics
DX: Z20.822 Contact with and (suspected) exposure to COVID-19 (principal)
CPT/HCPCS: C9803; U0003

== ENCOUNTER → 2022-01-24 | Outpatient (CLI) | payer OTHER ==
[~2022-01-24] MED LIST changes: -LISI-898 PO; +LISI5TAB11 PO
== END ==
LOC: M PLAIMG 09:04
PROVIDERS: ATTEND Physician Assistant
DX: S76.312D Strain of muscle, fascia and tendon of the posterior muscle group at thigh level, left thigh, subsequent encounter (principal)

== ENCOUNTER → 2022-02-07 | Outpatient (CLI) | payer OTHER | LOC: M SOG 08:17 | PROVIDERS: ATTEND Orthopaedic Surgery Adult Reconstructive Orthopaedic Surgery | DX: Z96.641 Presence of right artificial hip joint (principal) ==

== ENCOUNTER → 2022-03-18 | Outpatient (CLI) | payer BC, OTHER | LOC: M LABSMTC 11:51 | PROVIDERS: ATTEND Anesthesiology | DX: Z20.828 Contact with and (suspected) exposure to other viral communicable diseases (principal); Z11.59 Encounter for screening for other viral diseases ==

== ENCOUNTER 2022-03-22 09:41 | Day surgery (SDC) | payer BC ==
[~2022-03-22] VITALS: Ht 182.9 cm; Wt 100.0 kg
[~2022-03-22 09:41] MED LIST changes: +NS 1,000 ML IV ONE
[2022-03-22] MEDS ORDERED: propofoL 200 MG/20 ML VIAL As Ordered ONE (10:54)
[2022-03-22] MEDS ORDERED: LIDOCAINE 2% 100MG/5ML SDV (FOR ANES.) As Ordered ONE (10:54)
[2022-03-22 11:21] VITALS: BP 129/77
== END 2022-03-22 11:40 | disposition home or self-care (01) ==
LOC: M OPP 09:41
PROVIDERS: ATTEND Surgery
DX: Z12.11 Encounter for screening for malignant neoplasm of colon (principal); Z86.010 Personal history of colon polyps; K57.30 Diverticulosis of large intestine without perforation or abscess without bleeding; M16.0 Bilateral primary osteoarthritis of hip

== ENCOUNTER → 2022-05-09 | Outpatient (CLI) | payer BC ==
[~2022-05-09] MED LIST changes: -NS 1,000 ML IV ONE
== END ==
LOC: M SOG 08:44
PROVIDERS: ATTEND Orthopaedic Surgery
DX: M54.50 Low back pain, unspecified (principal)

== ENCOUNTER 2022-08-02 08:00 | Outpatient (RCR) | payer BC | END 2022-08-10 | LOC: M PT 08:00 | PROVIDERS: ATTEND Orthopaedic Surgery | DX: M54.50 Low back pain, unspecified (principal) ==

== ENCOUNTER → 2022-12-18 | Outpatient (CLI) | payer BC ==
[2022-12-18 11:19] LABS: HEMATOCRIT 49.2 % (42.0-52.0); HEMOGLOBIN 15.8 g/dl (13.5-17.5); MEAN CORPUSCULAR HEMOGLOBIN 29.2 pg (27.0-33.0); MEAN CORPUSCULAR HGB CONC 32.1 g/dl (32.0-36.5); MEAN CORPUSCULAR VOLUME 90.9 fl (80.0-96.0); PLATELET COUNT, AUTOMATED 293 10^3/uL (150-450); RED BLOOD COUNT 5.41 10^6/uL (4.30-6.10); WHITE BLOOD COUNT 6.7 10^3/uL (4.0-10.0)
[2022-12-18 11:31] LABS: ERYTHROCYTE SEDIMENTATION RATE 50 mm/hr (0-20)
[2022-12-18 11:49] LABS: ALBUMIN 3.8 G/DL (3.2-5.2); ALKALINE PHOSPHATASE 99 U/L (46-116); ALT/SGPT 22 U/L (7.0-40); AST/SGOT 16 U/L (<34); BILIRUBIN,TOTAL 0.5 MG/DL (0.3-1.2); BLOOD UREA NITROGEN 21 MG/DL (9-23); CALCIUM LEVEL 9.8 MG/DL (8.3-10.6); CARBON DIOXIDE LEVEL 28 MMOL/L (20-31); CHLORIDE LEVEL 105 MMOL/L (98-107); CHOLESTEROL LEVEL 227 MG/DL (<200); CHOLESTEROL RISK RATIO 4.84 (<5); CREATININE FOR GFR 0.84 MG/DL (0.70-1.30); GLOMERULAR FILTRATION RATE > 60.0 (>49); GLUCOSE, FASTING 91 MG/DL (74-106); HDL CHOLESTEROL 46.9 MG/DL (>40); LDL CHOLESTEROL 153.3 MG/DL (<100); NON-HDL-C 180.1 MG/DL; POTASSIUM SERUM 4.9 MMOL/L (3.5-5.1); SODIUM LEVEL 140 MMOL/L (136-145); TOTAL PROTEIN 7.1 G/DL (5.7-8.2); TRIGLYCERIDES LEVEL 134 MG/DL (<150)
[2022-12-18 11:50] LABS: RHEUMATOID FACTOR QUANT 5.5 IU/ML (<14)
== END ==
LOC: M PLALAB 08:10
PROVIDERS: ATTEND Nurse Practitioner Adult Health
DX: Z00.00 Encounter for general adult medical examination without abnormal findings (principal); I10 Essential (primary) hypertension; E78.00 Pure hypercholesterolemia, unspecified; Z12.5 Encounter for screening for malignant neoplasm of prostate; Z82.61 Family history of arthritis
CPT/HCPCS: 36415; 80053; 80061; 82164; 85027; 85652; 86037; 86038; 86200; 86431; G0103

== ENCOUNTER → 2023-12-23 | Outpatient (CLI) | payer BC | LOC: M RAD 07:08 | PROVIDERS: ATTEND Orthopaedic Surgery | DX: Z96.643 Presence of artificial hip joint, bilateral (principal) ==

== ENCOUNTER → 2024-01-30 | Outpatient (CLI) | payer BC ==
[2024-01-30 12:56] LABS: HEMATOCRIT 48.8 % (42.0-52.0); MEAN CORPUSCULAR HEMOGLOBIN 30.3 pg (27.0-33.0); MEAN CORPUSCULAR HGB CONC 32.8 g/dl (32.0-36.5); MEAN CORPUSCULAR VOLUME 92.4 fl (80.0-96.0); PLATELET COUNT, AUTOMATED 285 10^3/uL (150-450); RED BLOOD COUNT 5.28 10^6/uL (4.30-6.10); WHITE BLOOD COUNT 6.2 10^3/uL (4.0-10.0)
[2024-01-30 13:19] LABS: HEMOGLOBIN A1c 5.4 % (4.0-6.0)
[2024-01-30 13:23] LABS: ALKALINE PHOSPHATASE 76 U/L (46-116); ALT/SGPT 39 U/L (7.0-40); AST/SGOT 27 U/L (<34); BILIRUBIN,TOTAL 0.4 MG/DL (0.3-1.2); BLOOD UREA NITROGEN 19 MG/DL (9-23); CALCIUM LEVEL 9.6 MG/DL (8.3-10.6); CARBON DIOXIDE LEVEL 28 MMOL/L (20-31); CHLORIDE LEVEL 106 MMOL/L (98-107); CHOLESTEROL LEVEL 192 MG/DL (<200); CHOLESTEROL RISK RATIO 4.75 (<5); GLOMERULAR FILTRATION RATE > 60.0 (>49); GLUCOSE, FASTING 78 MG/DL (74-106); HDL CHOLESTEROL 40.4 MG/DL (>40); LDL CHOLESTEROL 124.4 MG/DL (<100); NON-HDL-C 151.6 MG/DL; POTASSIUM SERUM 4.8 MMOL/L (3.5-5.1); PSA SCREENING 0.89 NG/ML (< 4.00); SODIUM LEVEL 139 MMOL/L (136-145); TOTAL PROTEIN 6.8 G/DL (5.7-8.2); TRIGLYCERIDES LEVEL 136 MG/DL (<150)
== END ==
LOC: M PLALAB 08:29
PROVIDERS: ATTEND Nurse Practitioner Adult Health
DX: Z00.00 Encounter for general adult medical examination without abnormal findings (principal); I10 Essential (primary) hypertension; E78.2 Mixed hyperlipidemia; R73.01 Impaired fasting glucose; Z12.5 Encounter for screening for malignant neoplasm of prostate
CPT/HCPCS: 36415; 80053; 80061; 83036; 85027; G0103